=== PATIENT | female | born 1955 | race Caucasian/White ===

== ENCOUNTER 2017-05-13 09:14 | Day surgery (SDC) | payer BC ==
[2017-05-13] MEDS ORDERED: D5 LR 1000 ML 1,000 ML IV ONE (09:26)
[2017-05-13] MEDS ORDERED: DIPRIVAN VIAL 20 ML ONE (11:01)
[2017-05-13] MEDS ORDERED: XYLOCAINE 2 % (PLAIN) ONE (11:01)
[2017-05-13] MEDS ORDERED: DIPRIVAN VIAL 10 ML ONE (11:16)
[2017-05-13 11:47] VITALS: BP 122/66
== END 2017-05-13 11:50 | disposition home or self-care (01) ==
LOC: SURG1 09:14
PROVIDERS: ATTEND Internal Medicine Gastroenterology
PROC: 0DBP8ZX Excision of Rectum, Via Natural or Artificial Opening Endoscopic, Diagnostic (ICD-10-PCS; principal; 2017-05-13 13:00)
PROC: 0DJD8ZZ Inspection of Lower Intestinal Tract, Via Natural or Artificial Opening Endoscopic (ICD-10-PCS; principal; 2017-05-13 13:00)
DX: Z12.11 Encounter for screening for malignant neoplasm of colon (principal); R19.4 Change in bowel habit; K63.5 Polyp of colon; K57.30 Diverticulosis of large intestine without perforation or abscess without bleeding; K64.0 First degree hemorrhoids
CPT/HCPCS: A4217; J2001; J3490; J7120